=== PATIENT | male | born 1970 ===

== ENCOUNTER 2018-07-01 01:27 | Emergency (ER) | payer SELFPAY ==
[2018-07-01] MEDS ORDERED: Naproxen 550 mg Tab PO STA (02:34)
[2018-07-01] MEDS ORDERED: Naproxen 550 mg Tab PO ONE (02:48)
[2018-07-01] MEDS ORDERED: Albuterol 0.083% Inhal Sol (2.5 mg/3 mL) UD IH STA ×2 (02:58)
[2018-07-01] MEDS ORDERED: Albuterol 0.083% Inhal Sol (2.5 mg/3 mL) UD ONE (03:16)
--- NOTE | 2018-07-01 03:50 | C.PDOC ---
History Of Present Illness 47 year old male presents to the ED c/o cough for approximately a week. Patient reports he developed fever 3 days ago. Patient saw his PMD on 06/28 and was given Amoxicillin which he states is compliant with. Patient states today he developed body aches, headache, sore throat. Patient denies nausea, vomit, diarrhea, rash, dysuria, hematuria, recent travel, sick contacts. Time Seen by Provider: 07/01/18 01:49 Chief Complaint (Nursing): Flu-like Symptoms History Per: Patient History/Exam Limitations: no limitations Onset/Duration Of Symptoms: Days (3) Current Symptoms Are (Timing): Still Present Reports Recently: Treated By A Physician (PMD on 06/28) Recent travel outside of the [place]: No Additional History Per: Patient Past Medical History Reviewed: Historical Data, Nursing Documentation, Vital Signs Vital Signs: Last Vital Signs Temp 99.2 F 07/01/18 01:34 Pulse 104 H 07/01/18 01:34 Resp 18 07/01/18 01:34 BP 135/78 07/01/18 01:34 Pulse Ox 94 L 07/01/18 01:34 - Medical History PMH: No Chronic Diseases Surgical History: No Surg Hx Family History: States: Unknown Family Hx - Social History Hx Alcohol Use: Yes Hx Substance Use: No - Immunization History Hx Tetanus Toxoid Vaccination: No Hx Influenza Vaccination: No Hx Pneumococcal Vaccination: No Review Of Systems Constitutional: Positive for: Fever, Malaise. Negative for: Chills ENT: Positive for: Throat Pain. Negative for: Nose Discharge, Nose Congestion Respiratory: Positive for: Cough. Negative for: Shortness of Breath, Sputum Gastrointestinal: Negative for: Nausea, Vomiting, Abdominal Pain Genitourinary: Negative for: Dysuria Skin: Negative for: Rash Neurological: Positive for: Headache. Negative for: Weakness, Numbness, Dizziness Physical Exam - Physical Exam Appears: Non-toxic, Other (Mild uncomfortable ) Skin: Normal Color, Warm (to touch), Diaphoretic (mild) Head: Atraumatic, Normacephalic Eye(s): bilateral: Normal Inspection Ear(s): Bilateral: Normal Oral Mucosa: Moist Throat: Normal, No Erythema, No Exudate Neck: Normal ROM, Supple Chest: Symmetrical Cardiovascular: Rhythm Regular (mild tachycardic) Respiratory: No Rales, No Rhonchi, Wheezing (scattered bilateral expiratory) Gastrointestinal/Abdominal: Soft, No Tenderness, No Guarding, No Rebound Extremity: Normal ROM, No Tenderness, No Swelling Neurological/Psych: Oriented x3, Normal Speech, Normal Cognition Gait: Steady ED Course And Treatment O2 Sat by Pulse Oximetry: 94 - Radiology CXR: Interpreted by Me, Viewed By Me Progress Note: Plan: - CXR. - Albuterol x2. - Naproxen 550 mg PO. - Tamiflu 75 mg PO. - Prednisone 40 mg PO. - Influenza (+) Disposition Counseled Patient/Family Regarding: Studies Performed, Diagnosis, Need For Followup, Rx Given - Disposition Referrals: Marcelina Martin MD [Staff Provider] - Disposition: HOME/ ROUTINE Disposition Time: 04:15 Condition: STABLE Additional Instructions: FOLLOW UP WITH YOUR DOCTOR IN 1-2 DAYS USE MEDICATIONS DIRECTED RETURN TO ER IF SYMPTOMS WORSEN Prescriptions: Albuterol HFA [Ventolin HFA 90 mcg/actuation (8 g)] 0.09 mg IH Q4 PRN #1 puff PRN Reason: Wheezing Benzonatate [Tessalon Perles] 100 mg PO BID PRN #15 sgl PRN Reason: Cough Naproxen 375 mg PO BID PRN #20 tablet PRN Reason: pain Oseltamivir Phosphate [Tamiflu] 75 mg PO BID #10 capsule predniSONE [predniSONE Tab] 40 mg PO DAILY #6 tab Instructions: Influenza (ED) Forms: [facility] ([employer]) Print Language: WELSH - Clinical Impression Clinical Impression: Influenza A, Bronchospasm - Scribe Statement The provider has reviewed the documentation as recorded by the Scribe Erich Rae All medical record entries made by the Scribe were at my direction and person ally dictated by me. I have reviewed the chart and agree that the record accurately reflects my personal performance of the history, physical exam, medical decision making, and the department course for this patient. I have also personally directed, reviewed, and agree with the discharge instructions and disposition.
[2018-07-01 04:31] VITALS: BP 133/85; PULSE 95; RESP 20; TEMP 98.8; O2SAT 97
--- NOTE | 2018-07-01 10:29 | RAD ---
HISTORY: COUGH COMPARISON: No prior. TECHNIQUE: Chest PA and lateral FINDINGS: Examination limited by habitus and hypoinflation. The patient's chin obscures evaluation of the lung apices. LUNGS: No focal consolidation. Please note that chest x-ray has limited sensitivity for the detection of pulmonary masses. PLEURA: No significant pleural effusion identified. No definite pneumothorax . CARDIOVASCULAR: Borderline cardiomegaly likely exaggerated by technique. No atherosclerotic calcification present. OSSEOUS STRUCTURES: No acute osseous abnormality identified. VISUALIZED UPPER ABDOMEN: Unremarkable. OTHER FINDINGS: None. IMPRESSION: Limited study. No focal consolidation. Hypoinflation. Borderline cardiomegaly likely exaggerated by technique.
== END 2018-07-01 04:32 | disposition home or self-care (01) ==
LOC: C.ER 01:27
DX: J10.1 Influenza due to other identified influenza virus with other respiratory manifestations (principal); J98.01 Acute bronchospasm